=== PATIENT | female | born 1930 | race Caucasian/White ===

== ENCOUNTER 2019-06-10 16:05 | Inpatient (IN) | payer MEDICARE ==
[~2019-06-10] VITALS: Ht 165.1 cm; Wt 72.6 kg
--- NOTE | 2019-06-10 16:38 | PHYS DOC ---
Past History Past Medical History: Anxiety, Dementia, Hypertension, Hypothyroid Additional Past Medical Histor: chronic kidney disease, spinal stenosis, Smoking: Non-smoker Adult General Chief Complaint Chief Complaint: MEDICAL CLEARANCE HPI HPI Patient is an 89-year-old female who presents to the emergency department for evaluation. She is a resident at a memory care unit, has been a resident at a memory care unit, but has had increasing falls, and increasing behavioral changes recently according to her daughter. She did fall a few days ago, and developed some bruising around her eyes, but they declined imaging at that time, or further evaluation in the hospital. She has eloped from the facility a few times in the past few days, and has had a decline in her cognitive function and thus has been referred to the [facility] for psychiatric treatment and evaluation. She denies any complaints, but does exhibit symptoms of dementia. She has a history of factor V Leiden, and cerebral emboli/clots, and is on warfarin. Review of Systems Review of Systems Unable to obtain review of systems secondary to dementia. Physical Exam Physical Exam PHYSICAL EXAM: CONSTITUTIONAL: Well developed, well nourished HEAD: normocephalic, atraumatic EENT: PERRL, EOMI. Conjunctivae normal color, sclerae non-icteric; moist mucous membranes. There is bruising in the periorbital area bilaterally, subacute appearing, without any facial bony tenderness to palpation. NECK: Supple, non-tender; no meningismus.There is full, painless range of motion of the cervical spine, without any focal bony midline tenderness to palpation. LUNGS: Lungs CTA, breathing even and unlabored. Normal air movement. HEART: Regular rate and rhythm, no murmur CHEST: No deformity; non-tender ABDOMEN: The abdomen is soft, and non-tender, no masses or bruits. EXTREM: Normal ROM; no deformity, no calf tenderness. Normal pulses palpable in all extremities. There is no pedal edema. SKIN: No rash; no diaphoresis NEURO: Alert; normal speech impaired cognition consistent with dementia; CN's grossly intact; strength grossly intact without focal deficit. BACK: No CVA TTP. Current Patient Data Lab Results Laboratory Tests Test 06/10/19 16:14 06/10/19 16:30 Urine Collection Type Unknown Urine Color Yellow Urine Clarity Hazy Urine pH 6.0 Urine Specific [place] 1.010 Urine Protein Neg Urine Glucose (UA) Neg mg/dL Urine Ketones (Stick) Neg mg/dL Urine Blood Trace Urine Nitrite Neg Urine Bilirubin Neg Urine Urobilinogen Dipstick 0.2 mg/dL Urine Leukocyte Esterase Trace Urine RBC Occ /HPF Urine WBC 11-20 /HPF Urine Squamous Epithelial Cells Few /LPF Urine Bacteria Few /HPF White Blood Count 9.0 x10^3/uL Red Blood Count 5.03 x10^6/uL Hemoglobin 13.8 g/dL Hematocrit 43.3 % Mean Corpuscular Volume 86 fL Mean Corpuscular Hemoglobin 28 pg Mean Corpuscular Hemoglobin Concent 32 g/dL Red Cell Distribution Width 14.7 % Platelet Count 213 x10^3/uL Neutrophils (%) (Auto) 55 % Lymphocytes (%) (Auto) 31 % Monocytes (%) (Auto) 7 % Eosinophils (%) (Auto) 7 % Basophils (%) (Auto) 1 % Neutrophils # (Auto) 4.9 x10^3uL Lymphocytes # (Auto) 2.7 x10^3/uL Monocytes # (Auto) 0.7 x10^3/uL Eosinophils # (Auto) 0.6 x10^3/uL Basophils # (Auto) 0.1 x10^3/uL Prothrombin Time 30.4 SEC Prothromb Time International Ratio 2.9 Sodium Level 141 mmol/L Potassium Level 4.2 mmol/L Chloride Level 106 mmol/L Carbon Dioxide Level 24 mmol/L Anion Gap 11 Blood Urea Nitrogen 27 mg/dL Creatinine 1.9 mg/dL Estimated GFR (Cockcroft-Gault) 24.9 BUN/Creatinine Ratio 14 Glucose Level 89 mg/dL Calcium Level 9.9 mg/dL Magnesium Level 2.4 mg/dL Total Bilirubin 0.6 mg/dL Aspartate Amino Transf (AST/SGOT) 42 U/L Alanine Aminotransferase (ALT/SGPT) 23 U/L Alkaline Phosphatase 72 U/L Total Protein 8.3 g/dL Albumin 3.9 g/dL Albumin/Globulin Ratio 0.9 EKG EKG Normal sinus rhythm at a rate of 63 bpm, left axis deviation, normal intervals. Nonspecific ST/T changes.[] Radiology/Procedures Radiology/Procedures PROCEDURE: CT HEAD WO CONTRAST CT HEAD WO CONTRAST Clinical indications: Altered mental status. Fall. On warfarin. COMPARISON: None available. Technique: Noncontrast axial cross sectional scanning of the head was performed. PQRS compliance Statement One or more of the following individualized dose reduction techniques were utilized for this study: 1. Automated exposure control 2. Adjustment of the mA and/or kV according to patient size 3. Use of iterative reconstruction technique Findings: No acute intracranial hemorrhage or midline shift or mass-effect or extra-axial fluid collection is seen. There is encephalomalacia due to an old infarct of the medial aspect of the left cerebellum. There is moderate bilateral periventricular white matter hypodensity present. Ventriculomegaly is seen. Generalized cerebral atrophy is evident. No skull fracture or pneumocephalus is seen. No opacification of the mastoid sinuses or the middle ear cavities is seen. There is opacification of the anterior left ethmoid sinus. The maxillary sinuses are not completely seen in this study. IMPRESSION: No acute intracranial hemorrhage is seen. Ventriculomegaly which may be secondary to generalized cerebral atrophy or normal pressure hydrocephalus. Moderate bilateral periventricular white matter hypodensity which may be due to chronic small vessel ischemic disease or could be due to transependymal flow of CSF related to normal pressure hydrocephalus. 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 Anterior left ethmoid sinusitis.[] Course & Med Decision Making Course & Med Decision Making Pertinent Labs and Imaging studies reviewed. (See chart for details) [] Dragon Disclaimer Dragon Disclaimer This electronic medical record was generated, in whole or in part, using a voice recognition dictation system. Departure Departure: Impression: Primary Impression: Dementia with behavioral disturbance Disposition: ADMITTED INPATIENT (SB) Condition: STABLE COREY KIM MD Jun 10, 2019 16:38
[2019-06-10 16:54] LABS: BASO # 0.1 x10^3/uL (0.0-0.2); BASO % 1 % (0-3); EOS # 0.6 x10^3/uL (0.0-0.7); EOS % 7 % (0-3); HEMATOCRIT 43.3 % (36.0-47.0); HEMOGLOBIN 13.8 g/dL (12.0-15.5); LYMPH # 2.7 x10^3/uL (1.0-4.8); LYMPH % 31 % (24-48); MEAN CORPUSCULAR HEMOGLOBIN 28 pg (25-35); MEAN CORPUSCULAR HGB CONC 32 g/dL (31-37); MEAN CORPUSCULAR VOLUME 86 fL (79-100); MONO # 0.7 x10^3/uL (0.0-1.1); MONO % 7 % (0-9); NEUT # 4.9 x10^3uL (1.8-7.7); NEUT % 55 % (31-73); PLATELET COUNT 213 x10^3/uL (140-400); RED BLOOD COUNT 5.03 x10^6/uL (3.50-5.40); RED CELL DISTRIBUTION WIDTH 14.7 % (11.5-14.5)
--- NOTE | 2019-06-10 17:00 | RAD ---
CT HEAD WO CONTRAST Clinical indications: Altered mental status. Fall. On warfarin. COMPARISON: None available. Technique: Noncontrast axial cross sectional scanning of the head was performed. PQRS compliance Statement One or more of the following individualized dose reduction techniques were utilized for this study: 1. Automated exposure control 2. Adjustment of the mA and/or kV according to patient size 3. Use of iterative reconstruction technique Findings: No acute intracranial hemorrhage or midline shift or mass-effect or extra-axial fluid collection is seen. There is encephalomalacia due to an old infarct of the medial aspect of the left cerebellum. There is moderate bilateral periventricular white matter hypodensity present. Ventriculomegaly is seen. Generalized cerebral atrophy is evident. No skull fracture or pneumocephalus is seen. No opacification of the mastoid sinuses or the middle ear cavities is seen. There is opacification of the anterior left ethmoid sinus. The maxillary sinuses are not completely seen in this study. IMPRESSION: No acute intracranial hemorrhage is seen. Ventriculomegaly which may be secondary to generalized cerebral atrophy or normal pressure hydrocephalus. Moderate bilateral periventricular white matter hypodensity which may be due to chronic small vessel ischemic disease or could be due to transependymal flow of CSF related to normal pressure hydrocephalus. 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 Anterior left ethmoid sinusitis. Electronically signed by: Robert Jo MD (06/10/2019 4:57 PM) [email or web address]
[2019-06-10 17:04] LABS: ALBUMIN 3.9 g/dL (3.4-5.0); ALBUMIN/GLOBULIN RATIO 0.9 (1.0-1.7); CALCIUM 9.9 mg/dL (8.5-10.1); CREATININE 1.9 mg/dL (0.6-1.0); GFR 24.9; MAGNESIUM 2.4 mg/dL (1.8-2.4); POTASSIUM 4.2 mmol/L (3.5-5.1); TOTAL BILIRUBIN 0.6 mg/dL (0.2-1.0); TOTAL PROTEIN 8.3 g/dL (6.4-8.2)
[2019-06-10 17:07] LABS: BILIRUBIN,URINE NEG (NEG); CLARITY,URINE HAZY; COLOR,URINE YELLOW; GLUCOSE,URINE NEG (NEG); NITRITE,URINE NEG (NEG); RBC,URINE OCC /HPF (0-2); UROBILINOGEN,URINE 0.2 mg/dL (0.2 mg/dL)
[2019-06-10 17:08] LABS: BACTERIA,URINE FEW /HPF (0-FEW); SQUAMOUS EPITHELIAL CELL,UR FEW /LPF
[2019-06-10] MEDS ORDERED: SMZ/TMP 800/160MG TABLET. PO ONE (17:15)
[2019-06-10] MEDS ORDERED: cloNIDine HCL 0.1 MG TABLET PO ONE (17:15)
[2019-06-10] MEDS ORDERED: SERT25TA PO (18:20)
[2019-06-10] MEDS ORDERED: WARF2.5T83 PO (18:20)
[2019-06-10] MEDS ORDERED: BISA10EN RC (18:20)
[2019-06-10] MEDS ORDERED: ACET650S11 RC (18:20)
[2019-06-10] MEDS ORDERED: OLAN2.5T3 PO (18:20)
[2019-06-10] MEDS ORDERED: MAGN400O7 PO (18:20)
[2019-06-10] MEDS ORDERED: LEVO25TA55 PO (18:20)
[2019-06-10] MEDS ORDERED: MAG355OR11 PO (18:20)
[2019-06-10] MEDS ORDERED: GUAI600T6 PO (18:20)
[2019-06-10] MEDS ORDERED: LOPE2TAB27 PO (18:20)
[2019-06-10] MEDS ORDERED: ACET325T21 PO (18:20)
[2019-06-10] MEDS ORDERED: CHOL200027 PO (18:20)
[2019-06-10] MEDS ORDERED: GABA100C81 PO (18:20)
--- NOTE | 2019-06-10 18:20 | EKG ---
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
[2019-06-10 18:58] VITALS: BP 105/58
[2019-06-10] MEDS ORDERED: ACETAMINOPHEN 650 MG SUPP.RECT. RC PRN (20:15)
[2019-06-10] MEDS ORDERED: MAGNESIUM HYDROXIDE 2,400 MG/30 ML ORAL.SUSP. PO PRN (20:15)
[2019-06-10] MEDS ORDERED: BISACODYL 10 MG/30 ML ENEMA RC PRN (20:15)
[2019-06-10] MEDS ORDERED: ACETAMINOPHEN 325 MG TABLET PO PRN (20:15)
[2019-06-10] MEDS ORDERED: METHYL SALICYLATE/MENTHOL TOPICAL OINTMENT 57GM TUBE. TP PRN (20:15)
[2019-06-10] MEDS ORDERED: MAG HYDROX/AL HYDROX/SIMETH 30 ML ORAL.SUSP PO PRN (20:45)
[2019-06-10] MEDS ORDERED: LOPERAMIDE 2 MG CAPSULE PO PRN (20:45)
[2019-06-10] MEDS: SERTRALINE 25 MG TABLET. PO SCH (20:52)
[2019-06-11] MEDS: LEVOTHYROXINE 25 MCG TABLET. PO SCH (04:52)
[2019-06-11 06:06] VITALS: BP 122/65
[2019-06-11] MEDS: OLANZapine 5 MG TABLET PO SCH ×2 (10:43→14:34)
--- NOTE | 2019-06-11 12:53 | CONS ---
DATE OF CONSULTATION: 06/10/2019 REASON FOR CONSULTATION: Medical management. HISTORY OF PRESENT ILLNESS: The patient is an 89-year-old female patient, a resident at [facility], who was admitted on account of severe paranoia, exit seeking, eloped from facility x 2, chasing staff with broken glass shreds from picture frames, fairly recently on June 26 bumped her forehead and small abrasions, all this in background of dementia with behavioral disorder and anxiety. Medically, she has multiple medical problems including cerebrovascular accident, spinal stenosis, hypertension, hypothyroidism, vitamin D deficiency, chronic kidney disease. She also has left-sided sciatica. PAST SURGICAL HISTORY: Significant for tonsillectomy. ALLERGIES: She is allergic to PENICILLIN, AMOXICILLIN and CLAVULANIC ACID. MEDICATIONS: She is currently on following medications: She is on Coumadin 2.5 mg once a day, acetaminophen 325 mg once a day, Tylenol 650 mg every 4 hours, gabapentin 200 mg at bedtime, sertraline 75 mg at bedtime, olanzapine 2.5 mg, she takes 5 mg after every afternoon. She is on Mucinex extended release 600 mg twice a day, Maalox advanced suspension 15 mL after meals and bedtime, loperamide 2 mg every 4 hours as needed, bisacodyl 10 mg in 30 mL enema rectally daily p.r.n. for constipation, milk of magnesia 30 mL p.o. daily p.r.n. for constipation. She is on levothyroxine 25 mcg once a day, vitamin D 2000 International Units once a day. FAMILY HISTORY: Noncontributory. SOCIAL HISTORY: She is , has 2 sons and 1 daughter. 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 She apparently does not smoke, drink alcohol or use recreational drugs. REVIEW OF SYSTEMS: As per history of present illness. PHYSICAL EXAMINATION GENERAL: When I examined her, she looked well and was clearly in no apparent respiratory distress. There was no pallor, jaundice or cyanosis. No lymphadenopathy. No thyromegaly. No jugular venous distention. No lower limb edema. VITAL SIGNS: Her heart rate was 73, blood pressure was 105/58, temperature was 98.7, respiratory rate was 18 and oxygen saturation was 95% on room air. HEAD, EYES, EARS, NOSE AND THROAT: Showed normocephalic with multiple bruises. She has bilateral raccoon eyes. She has also bruises on her scalp area. NECK: Supple. HEART: Showed normal first and second heart sounds. No gallop or murmur. CHEST: Clear to auscultation. No crepitation or rhonchi. ABDOMEN: Distended, soft, nontender. NEUROLOGIC: She was demented, but without any obvious lateralizing sign. All her cranial nerves seemed to be grossly intact. She ambulates with a walker, although she is very unsteady and apparently has tendency to veer towards the left side. LABORATORY DATA: Showed white cell count of 9000, hemoglobin 13.8, hematocrit 43, MCV 86 and platelet count 213,000. Her chemistry showed serum sodium 141, potassium 4.2, chloride 106, bicarbonate 24, anion gap of 11, BUN 27, creatinine 1.9. Her blood glucose was 89, calcium was 9.9, magnesium 2.4. Total bilirubin, AST, ALT, alkaline phosphatase were normal. Total protein was 8.3, albumin was 3.9. Her prothrombin time was 13.4, INR of 2.9. Urinalysis was essentially unremarkable. The urine was yellow, hazy with pH of 6, specific gravity of 1.010. The urine was negative for protein, glucose, ketones. There was trace amount of blood, negative for nitrite. There was trace of leukocyte esterase, occasional rbc's, 11-20 wbc's and very few bacteria. CT scan of the head showed no acute intracranial hemorrhage or midline shift or mass effect or extraaxial fluid collection is seen. There is encephalomalacia due to an old infarct of the medial aspect of the left cerebellum. There is moderate bilateral periventricular white matter modestly, hypodensity present, ventriculomegaly seen, generalized cerebral atrophy is evident. No skull fracture or pneumocephalus is seen. No opacification of the mastoid sinuses or middle ear cavities is seen. There is opacification of the anterior left ethmoid sinuses. The maxillary sinuses are not completely seen in this study. IMPRESSION: In summary, this is an 89-year-old female patient, a resident at [facility] where she was admitted for rehabilitation following recent cerebrovascular accident and was admitted to this unit on account of severe paranoia, exit seeking, eloped from the facility x 2, chasing staff with broken glass shreds from picture frames, fell recently on June 06, bumped her forehead and small abrasions, all this in a background of dementia with behavioral disorder. Medically, she has multiple medical problems. She clearly has very unsteady gait and tendency to veer towards the left side, likely because of cerebral infarct. She has also labile blood pressure with heart rate where blood pressure goes up to 112/85. Her lab work is generally stable, consistent with her chronic kidney disease, so in all she seems to be medically stable. I would continue all this current plan of management and monitor her lab work and make any necessary adjustments. Thank you, Dr. Sims for allowing me to participate in the care of this patient. MAIK LEE MD DR: TU/nts JOB#: [id number] / [id number]
[2019-06-11 14:58] LABS: THYROID STIM HORMONE (TSH) 2.661 uIU/mL (0.358-3.740)
[2019-06-11 16:00] VITALS: BP 161/116
[2019-06-11] MEDS: WARFARIN 2 MG TABLET. PO SCH (16:00)
[2019-06-11] MEDS ORDERED: WARFARIN 2.5 MG TABLET. PO SCH (16:00)
[2019-06-11] MEDS: CHOLECALCIFEROL (VITAMIN D3) 1,000 UNIT TABLET PO SCH (17:16)
[2019-06-11] MEDS: GABAPENTIN 100 MG CAPSULE. PO SCH (17:16)
[2019-06-11] MEDS: SERTRALINE 25 MG TABLET. PO SCH (20:19)
[2019-06-11 20:24] VITALS: BP 129/76
--- NOTE | 2019-06-12 00:27 | PSYEV ---
DATE OF SERVICE: 06/11/2019 REASON FOR ADMISSION: This 89-year-old single female was admitted to inpatient [facility] with the increasing behavior problems. The patient apparently tried to elope from the facility twice, chasing staff with a broken glass after she broke a picture frame, also fell on 06/13 with a bump on her forehead and abrasion and admits that she has problems with her balance. The patient also has been confused. 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 The patient had considerable difficulty providing information with regard to reason for admission. The patient was diagnosed with dementia with behavior disorder and anxiety. The patient is also having multiple medical issues. The patient since admission has been anxious, restless, confused, not knowing where she is. The patient also having problems with concentration, attention span and significant memory problems. PAST MEDICAL HISTORY: The patient apparently has multiple physical problems including hypertension, hypothyroidism, vitamin D deficiency, chronic kidney disease, left-sided sciatica and spinal stenosis. ALLERGIES: The patient is allergic to PENICILLIN, AMOXICILLIN and also CLAVULANIC ACID. MEDICATIONS: The patient's current medications include Coumadin 2.5 mg daily, Tylenol 325 mg daily, gabapentin 200 mg at bedtime, Zoloft 75 mg at bedtime, olanzapine 2.5 mg daily and 5 mg at noon. The patient is also on levothyroxine 25 mcg once daily for hypothyroidism. PSYCHOSOCIAL HISTORY: The patient is and has 2 sons and a daughter. 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 The patient denies of any problems smoking. Denies of any problems with alcohol. The patient's father , apparently had cardiovascular disease and hypertension. Mother also when he was 8 years old, had breast cancer. One of her brother at age 26 with a motor vehicular accident and another brother from emphysema at age 78. The patient admits to drinking socially, never had any problems with alcohol. MENTAL STATUS EXAMINATION: The patient appeared to be of her stated age, patient apparently has bruises over her face below eyes. The patient has no swelling. The patient has marked tremors of both hands. The patient has also unsteady gait and she is a fall risk. The patient is able to make eye contact. She is somewhat anxious, agitation, and also guarded. She was disoriented to surroundings. She thought she was in a gnosticist. The patient's speech was clear, monotone, decreased rate and rhythm. Her affect and mood showed she is anxious, worried, confused and also paranoid at times, but no evidence of any overt psychotic symptoms. The patient tends to pace a lot. The patient is also having difficulty with concentration and thinking, not able to follow directions. The patient lacks insight to her problems. The patient is disoriented to time, place, and person. The patient did not know the date, month or year, but the patient is able to recall events from the past. The patient's short-term memory is impaired. Unable to do serial 7's, able to recall 1 object out of 4 in 5 minutes. The patient's judgment is impaired. Insight limited. The patient appears to be functioning on an average level of intelligence. STRENGTHS: The patient is apparently fairly in good health for her age. Supportive family. WEAKNESSES: The patient is confused, significant cognitive deficits. The patient is also not able to follow directions and she has high risk for falls. ADMITTING DIAGNOSES: AXIS I: 1. 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 2. Generalized anxiety disorder. 3. Impulse control disorder, unspecified, rule out underlying psychosis. AXIS II: None. AXIS III: Status post cerebrovascular accident, chronic kidney disease, osteoarthritis, and hypothyroidism. The patient will be admitted to the inpatient unit. The patient will be seen by Dr. Downey for physical exam. The patient will undergo routine evaluations including lab. The patient will be seen by the psychiatrist on a daily basis. The patient will be encouraged to attend all the activities including individual therapy, group therapy, activity therapy. PLAN: The patient will continue the current medications. LENGTH OF STAY: 7-10 days. ARSALAN VALENCIA MD DR: BRADEN/luana JOB#: [id number] / [id number]
[2019-06-12 01:07] LABS: HEMOGLOBIN A1C 5.4 % (4.8-5.6)
[2019-06-12] MEDS: LEVOTHYROXINE 25 MCG TABLET. PO SCH (05:23)
[2019-06-12 06:11] VITALS: BP 159/49
[2019-06-12 06:36] VITALS: BP 101/72
[2019-06-12] MEDS: WARFARIN 2 MG TABLET. PO SCH (14:57)
--- NOTE | 2019-06-12 15:17 | TX PLAN ---
Interdisciplinary Tx Plan Admission Information Jun 10, 2019 at 18:20 Legal Status (on Admission): Voluntary DPOA/Guardian Name: Rachelle Restrepo Contact Other Contact Name: [facility] ([facility]) Other Contact Verified Code Status: DNR Allergies: Coded Allergies: Penicillins (Verified Allergy, Unknown, 06/10/19) amoxicillin (Verified Allergy, Unknown, 06/10/19) clavulanic acid (Verified Allergy, Unknown, 06/10/19) Diagnoses Primary Diagnosis: Major Neurocognitive D/O with BD Reasons for Admission: Agitated, Suspicious/paranoid, Confusion/Disoriented, Poor impulse control Problem in Patient's Words: Natural progression of her diagnosis Additional Admission Comments: According to the intake, pt has severe paranoia, exit seeking, eloped from the facility x2, chasing staff with broken glass from picture frames, in her room with 1:1 and needing redirection. Problems Active Problems: Medication compliance Restlessness Unsteady gait Paranoia Decrease cognition Inactive Problems: N/A Pt Strengths/Limitations Ability for Mcpherson: Poor Cognitive Functioning/Ability: Poor Communication Skills/Ability: Fair Financial Resources: Fair Insight/Judgement: Poor Intellectual Ability: Poor Physical Health: Fair Social Skills: Fair Stability in Family: Good Stability in School/Work: Poor Verbal Skills: Fair Discharge Criteria Discharge Criteria: No need for close observ., Adequate arrangements @DC, Improved behavior, Improved mood/thought Preliminary Discharge Plan Preliminary DC Plan: Current Living Arrange. Other Arrangements: Pt to return to her plalcement at [facility] Special Precautions Fall Risk: Moderate Other Precautions (specify): Pt does have unsteady gait and using a RW Initial D/C Plan After assessment and stabilization, the goal will be for pt to return back to her placement in [place], [place]. Identified Discharge Needs: Pt will plan to follow-up with pt facility to plan pt return. Currently Utilized Resources Currently Utilized Resources/P: Pt does have a primary care physician Referrals Community Resources: May need referral sources to mental health/psychiatry services. Identified Problems/Hx/Goals Objectives/Short-Term Goals Short Term Goals: Improved Social Skills, Medication Stabilization, Promote Coping Skill Short Term Goals in Patient's: Decrease paranoia Interventions/Frequency Staff Interventions/Frequency&: Psychiatrist to meet with pt at least 3x per week. chemical worker to meet with pt at least 2x per week. Nursing to complete 15 minute checks daily. Engage and encourage participation in group activities. 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 Education: Pt graduated with her Bachelors in Nursing. "Back then you didn't have a BSN option". Community Follow-up Will have follow-up with PCP. Community Provider/Family Inpu: Anything that will work with Adele and continuing care for pt would be appreciated. 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 They are aware of goals that will be set and understand medications will be adjusted. ALEXX HOPPER Jun 12, 2019 15:17
[2019-06-12 16:54] VITALS: BP 143/69
[2019-06-12] MEDS: CHOLECALCIFEROL (VITAMIN D3) 1,000 UNIT TABLET PO SCH (18:00)
[2019-06-12] MEDS: GABAPENTIN 100 MG CAPSULE. PO SCH (18:09)
[2019-06-12] MEDS: SERTRALINE 25 MG TABLET. PO SCH (19:57)
[2019-06-12 20:45] VITALS: BP 187/76
[2019-06-12] MEDS ORDERED: OLANZapine 7.5 MG TABLET PO SCH (21:00)
--- NOTE | 2019-06-12 23:52 | PN ---
DATE: 06/12/2019 SUBJECTIVE: The patient was seen today, met with the staff, chart reviewed. According to staff, the patient is still disorganized, confused, agitated easily, also delusional, tend to be aggressive at times, not able to follow directions and also threatening to cut staff's hair off. OBSERVATION: VITAL SIGNS: Temperature 98, blood pressure 159/49, pulse 90, respiration 18, O2 sat 94%. GENERAL: Slept about 7 hours last night. The patient's appetite improved. MEDICATIONS: The patient's current medications include gabapentin 200 mg in the evening, olanzapine 7.5 mg at night and also olanzapine 2.5 mg q. 4 hours p.r.n., Zoloft 75 mg at night. The patient is not having any side effects. LABORATORY DATA: The patient's lab reviewed. The patient's BUN is 27, creatinine 1.9. ASSESSMENT: 1. Neurocognitive disorder, most likely vascular with behavior problems. 2. Generalized anxiety disorder. 3. Impulse control disorder, unspecified. PLAN: To continue with current treatment plan. The patient is encouraged to attend all the activities. So far, the patient is compliant with the treatment. LENGTH OF STAY: 7-10 days. ARSALAN VALENCIA MD DR: BRADEN/luana JOB#: [id number] / [id number]
[2019-06-13 00:07] LABS: THYROXINE 8.1 ug/dL (4.5-12.0)
[2019-06-13] MEDS: LEVOTHYROXINE 25 MCG TABLET. PO SCH (05:56)
[2019-06-13 05:57] VITALS: BP 175/71
[2019-06-13 15:58] VITALS: BP 130/60
[2019-06-13] MEDS ORDERED: WARFARIN 3 MG TABLET. PO ONE (16:00)
[2019-06-13] MEDS: CHOLECALCIFEROL (VITAMIN D3) 1,000 UNIT TABLET PO SCH (17:23)
[2019-06-13] MEDS: GABAPENTIN 100 MG CAPSULE. PO SCH (17:24)
[2019-06-13] MEDS: OLANZapine 10 MG TABLET PO SCH (19:58)
[2019-06-13] MEDS: DIVALPROEX 125 MG CAP.SPRINK PO SCH (19:58)
[2019-06-13] MEDS: SERTRALINE 50 MG TABLET. PO SCH (19:58)
--- NOTE | 2019-06-14 00:03 | PN ---
DATE: 06/13/2019 SUBJECTIVE: The patient was seen today, met with the staff, and reviewed her progress and medications. Staff reports increasing behavior problems. She is confused, agitated, difficult to redirect and also exit-seeking behaviors. Staff reports that the patient is disorganized, also fell and she missed the chair in the dayroom, but no injuries. The patient has episodes of increased confusion and agitation and constantly focusing on issues that are not relevant at this point here. 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 OBSERVATION: VITAL SIGNS: Temperature 97.2, blood pressure 175/71, pulse 68, respirations 20, O2 sat 95%. GENERAL: Slept about 7 hours last night. The patient's appetite is fair. MEDICATIONS: The patient's current medications include gabapentin 200 mg in the evening, olanzapine 7.5 mg at night, Zoloft 75 mg at night and also olanzapine 2.5 mg q.4 hours p.r.n. LABORATORY DATA: The patient's lab reviewed. The patient is not having any side effects to medications. 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 Generalized anxiety disorder. Impulse control disorder, unspecified. PLAN: To continue with the treatment. The patient will be encouraged to attend all the activities. The patient's medications reviewed. The patient's gabapentin to be increased to 10 mg at night. The patient's Zoloft to be decreased to 50 mg at night and she was started on Depakote Sprinkles 125 mg b.i.d. p.o. ASSESSMENT: 1. 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 2. Generalized anxiety disorder. 3. Impulse control disorder, unspecified. PLAN: Continue with the treatment. LENGTH OF STAY: 7-10 days. ARSALAN VALENCIA MD DR: BRADEN/luana JOB#: [id number] / [id number]
[2019-06-14] MEDS: LEVOTHYROXINE 25 MCG TABLET. PO SCH (05:15)
[2019-06-14 06:03] VITALS: BP 139/68
[2019-06-14] MEDS: DIVALPROEX 125 MG CAP.SPRINK PO SCH ×3 (08:16→19:50)
[2019-06-14 15:32] VITALS: BP 98/64
[2019-06-14] MEDS ORDERED: WARFARIN 3 MG TABLET. PO ONE (16:00)
[2019-06-14] MEDS: CHOLECALCIFEROL (VITAMIN D3) 1,000 UNIT TABLET PO SCH (17:31)
[2019-06-14] MEDS: GABAPENTIN 100 MG CAPSULE. PO SCH (17:31)
[2019-06-14] MEDS: SERTRALINE 50 MG TABLET. PO SCH (19:50)
[2019-06-14] MEDS: OLANZapine 10 MG TABLET PO SCH (19:51)
--- NOTE | 2019-06-15 01:13 | PN ---
DATE: 06/14/2019 SUBJECTIVE: The patient was seen today, met with the staff, chart reviewed. The patient continues to show fluctuating symptoms, periods of confusion, agitation and also threatening to leave. The patient also gets paranoia. The patient is also showing significant mood swings and also significant short-term memory deficits. OBSERVATION: VITAL SIGNS: Temperature 97.6, blood pressure 139/68, pulse 72, respiration 18, O2 sat 97%. GENERAL: Slept about 7 hours last night. The patient's appetite is fair. The patient is not having any physical complaints. LABORATORY DATA: The patient's lab reviewed. MEDICATIONS: The patient's olanzapine was increased to 10 mg at night. The patient is also on Depakote Sprinkles 125 mg t.i.d. The patient is not having any side effects to medications. ASSESSMENT: 1. 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 2. Generalized anxiety disorder. 3. Impulse control disorder, unspecified. PLAN: To continue with the treatment. LENGTH OF STAY: 7-10 days. ARSALAN VALENCIA MD DR: BRADEN/luana JOB#: [id number] / [id number]
[2019-06-15] MEDS: LEVOTHYROXINE 25 MCG TABLET. PO SCH (05:40)
[2019-06-15 06:14] VITALS: BP 158/66
[2019-06-15] MEDS: DIVALPROEX 125 MG CAP.SPRINK PO SCH ×3 (08:57→19:37)
[2019-06-15 15:38] VITALS: BP 162/80
[2019-06-15] MEDS ORDERED: WARFARIN 3 MG TABLET. PO ONE (16:00)
[2019-06-15] MEDS: GABAPENTIN 100 MG CAPSULE. PO SCH (16:27)
[2019-06-15] MEDS: CHOLECALCIFEROL (VITAMIN D3) 1,000 UNIT TABLET PO SCH (16:28)
[2019-06-15] MEDS: SERTRALINE 50 MG TABLET. PO SCH (19:37)
[2019-06-15] MEDS: OLANZapine 10 MG TABLET PO SCH (19:37)
--- NOTE | 2019-06-16 01:04 | PN ---
DATE: 06/15/2019 SUBJECTIVE: The patient was seen today, met with the staff, chart reviewed. The patient's behavior tend to fluctuate, episodes of confusion, agitation, pacing, exit seeking behavior and also she is an elopement risk. Overall, her behavior has improved slightly. The patient continued to exhibit delusional behaviors, disorganized thinking, but sociable, interact with the staff and residents. OBSERVATION: VITAL SIGNS: Temperature 98.8, blood pressure 158/66, pulse 77, respirations 18, O2 sat 94%. The patient is averaging between 5 and 6 hours of sleep at night. LABORATORY DATA: The patient's lab reviewed. MEDICATIONS: The patient's current medications include olanzapine 10 mg at night, Depakote Sprinkles 125 mg t.i.d. and it is increased now to 125 mg b.i.d. and 500 mg at night. The patient is also on Zoloft 50 mg at night, that will be decreased to 25 mg daily. The patient is not having any side effects. The patient has not had any falls since admission. ASSESSMENT: 1. 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 2. Generalized anxiety disorder. 3. Impulse control disorder, unspecified. PLAN: To continue with the treatment. LENGTH OF STAY: 7-10 days. ARSALAN VALENCIA MD DR: BRADEN/luana JOB#: [id number] / [id number]
[2019-06-16] MEDS: LEVOTHYROXINE 25 MCG TABLET. PO SCH (04:55)
[2019-06-16 05:52] VITALS: BP 111/70
[2019-06-16 07:11] LABS: BASO # 0.1 x10^3/uL (0.0-0.2); BASO % 1 % (0-3); EOS # 0.5 x10^3/uL (0.0-0.7); EOS % 5 % (0-3); HEMATOCRIT 42.5 % (36.0-47.0); HEMOGLOBIN 13.6 g/dL (12.0-15.5); LYMPH # 3.6 x10^3/uL (1.0-4.8); LYMPH % 33 % (24-48); MEAN CORPUSCULAR HEMOGLOBIN 28 pg (25-35); MEAN CORPUSCULAR HGB CONC 32 g/dL (31-37); MEAN CORPUSCULAR VOLUME 86 fL (79-100); MONO % 9 % (0-9); NEUT # 5.8 x10^3uL (1.8-7.7); NEUT % 53 % (31-73); PLATELET COUNT 231 x10^3/uL (140-400); RED BLOOD COUNT 4.94 x10^6/uL (3.50-5.40); RED CELL DISTRIBUTION WIDTH 14.8 % (11.5-14.5)
[2019-06-16 07:28] LABS: ALBUMIN 3.4 g/dL (3.4-5.0); ALBUMIN/GLOBULIN RATIO 0.7 (1.0-1.7); ALK PHOS 66 U/L (46-116); ALT (SGPT) 29 U/L (14-59); ANION GAP 8 (6-14); AST (SGOT) 35 U/L (15-37); BLOOD UREA NITROGEN 38 mg/dL (7-20); BUN/CREATININE RATIO 19 (6-20); CALCIUM 9.3 mg/dL (8.5-10.1); CARBON DIOXIDE 25 mmol/L (21-32); CHLORIDE 108 mmol/L (98-107); GFR 23.5; GLUCOSE 93 mg/dL (70-99); POTASSIUM 5.1 mmol/L (3.5-5.1); SODIUM 141 mmol/L (136-145); TOTAL BILIRUBIN 0.6 mg/dL (0.2-1.0); TOTAL PROTEIN 8.1 g/dL (6.4-8.2)
[2019-06-16 08:04] LABS: VAL ACID 30 mcg/mL (50-100)
[2019-06-16] MEDS: DIVALPROEX 125 MG CAP.SPRINK PO SCH ×3 (09:06→20:00)
[2019-06-16 09:36] LABS: % ATYL 16 % (0-0); % EOS 6 % (0-5); % LYMPHS 17 % (24-48); % MONOS 14 % (0-10); % SEGS 47 % (35-66)
[2019-06-16 09:37] LABS: PLT ESTIMATE ADEQUATE (ADEQUATE)
[2019-06-16] MEDS ORDERED: WARFARIN 3 MG TABLET. PO ONE (16:00)
[2019-06-16 16:12] VITALS: BP 109/61
[2019-06-16] MEDS: GABAPENTIN 100 MG CAPSULE. PO SCH (18:35)
[2019-06-16] MEDS: CHOLECALCIFEROL (VITAMIN D3) 1,000 UNIT TABLET PO SCH (18:36)
[2019-06-16] MEDS: OLANZapine 10 MG TABLET PO SCH (19:59)
[2019-06-16] MEDS: SERTRALINE 50 MG TABLET. PO SCH (20:00)
[2019-06-17] MEDS: LEVOTHYROXINE 25 MCG TABLET. PO SCH (05:12)
[2019-06-17 05:30] VITALS: BP 152/68
[2019-06-17] MEDS: DIVALPROEX 125 MG CAP.SPRINK PO SCH ×3 (08:11→20:02)
--- NOTE | 2019-06-17 10:00 | PN ---
DATE: 06/16/2019 SUBJECTIVE: The patient was seen today, met with the staff, chart reviewed. Staff continues to report increasing behavior problems, agitation, disorganized with thinking and very confused, and also exhibiting poor impulse control and low frustration tolerance. The patient apparently has calmed down. She is no longer wandering, not exhibiting exit-seeking behaviors. OBSERVATION: VITAL SIGNS: Temperature 98.9, blood pressure 111/70, pulse 76, respirations 20, O2 sat 94. GENERAL: Slept about 8 hours last night. The patient's appetite improved. NEUROLOGIC: The patient is not exhibiting any major mood swings; mostly withdrawn, but interacts very well on 1:1. The patient is lacking insight. The patient has significant cognitive deficits. She is disoriented to time, place and person. LABORATORY DATA: The patient's lab reviewed. CURRENT MEDICATIONS: Include olanzapine 10 mg at night, Depakote 125 mg t.i.d. that was increased to 125 mg b.i.d. and 500 mg at night. The patient is also on Zoloft 50 mg at night, and the plan is to eventually discontinue the Zoloft. The patient is not having any side effects. The patient has not had any falls since admission. ASSESSMENT: 1. 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 2. Generalized anxiety disorder. 3. Impulse control disorder, unspecified. PLAN: To continue with the treatment. LENGTH OF STAY: 7 to 10 days. ARSALAN VALENCIA MD DR: BRADEN/luana JOB#: [id number] / [id number]
[2019-06-17 15:31] VITALS: BP 157/75
[2019-06-17] MEDS ORDERED: WARFARIN 2.5 MG TABLET. PO ONE (16:00)
[2019-06-17] MEDS: GABAPENTIN 100 MG CAPSULE. PO SCH (17:10)
[2019-06-17] MEDS: CHOLECALCIFEROL (VITAMIN D3) 1,000 UNIT TABLET PO SCH (17:10)
[2019-06-17] MEDS: OLANZapine 10 MG TABLET PO SCH (20:02)
[2019-06-17] MEDS: SERTRALINE 50 MG TABLET. PO SCH (20:02)
--- NOTE | 2019-06-18 00:45 | PN ---
DATE: 06/17/2019 SUBJECTIVE: The patient was seen today, met with the staff, chart reviewed. The patient increasingly unsteady with her gait, tremulousness, also increased confusion. The patient exhibiting fairly advanced dementia. The patient is having difficulty orienting herself. She mixed up with the date and time. The patient mostly was conversation things from the past. Staff reports no falls, but patient is complaining of discomfort on her left knee. OBSERVATION: VITAL SIGNS: Temperature 97.6, blood pressure 152/68, pulse 80, respiration 18, O2 sat 92%. GENERAL: Slept about 7-1/2 hours last night. CURRENT MEDICATIONS: Include olanzapine 10 mg at night, Depakote 125 mg b.i.d. and 500 mg at night. The patient is also on Zoloft 50 mg at night and also patient's Zoloft to be discontinued eventually. The patient except for some tremulousness and unsteady gait, no other major side effects and we will monitor patient's Depakote level. LABORATORY DATA: The patient's lab reviewed. The patient's Depakote level was 30 on 06/16/2019. ASSESSMENT: 1. 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 2. Generalized anxiety disorder. 3. Impulse control disorder, unspecified. PLAN: To continue with the treatment. LENGTH OF STAY: 7-10 days. ARSALAN VALENCIA MD DR: BRADEN/luana JOB#: [id number] / [id number]
[2019-06-18 05:21] VITALS: BP 146/71
[2019-06-18] MEDS: LEVOTHYROXINE 25 MCG TABLET. PO SCH (05:44)
[2019-06-18] MEDS: DIVALPROEX 125 MG CAP.SPRINK PO SCH ×3 (08:44→19:57)
[2019-06-18 15:55] VITALS: BP 188/78
[2019-06-18] MEDS ORDERED: WARFARIN 3 MG TABLET. PO ONE (16:00)
[2019-06-18] MEDS: GABAPENTIN 100 MG CAPSULE. PO SCH (17:13)
[2019-06-18] MEDS: CHOLECALCIFEROL (VITAMIN D3) 1,000 UNIT TABLET PO SCH (17:15)
[2019-06-18] MEDS: SERTRALINE 50 MG TABLET. PO SCH (19:57)
[2019-06-18] MEDS: OLANZapine 10 MG TABLET PO SCH (19:57)
--- NOTE | 2019-06-18 21:58 | PDOC ---
Exam Note: Cem Note: Please also refer to the separate dictated note~for this date of service dictated separately.~Patient seen individually. Discussed the patient with Nursing staff reviewed the chart.~Reviewed interim history and current functioning. Reviewed vital signs,~Labs/ Radiology~and current medications noted below. Continue current treatment with the changes noted in the dictated addendum note Assessment: Vital Signs/I&O: Vital Signs Date Time Temp Pulse Resp B/P (MAP) Pulse Ox O2 Delivery O2 Flow Rate FiO2 06/18/19 15:55 97.9 89 24 188/78 (114) 97 06/18/19 05:21 Room Air I & O 06/17/19 06/17/19 06/18/19 15:00 23:00 07:00 Intake Total 720 ml 60 ml 240 ml Balance 720 ml 60 ml 240 ml Labs: Laboratory Tests Test 06/18/19 06:19 Prothrombin Time 19.8 SEC (9.4-11.4) H Prothrombin Time INR 1.9 (0.9-1.1) H Current Medications: Meds: Current Medications Medications (Trade) Dose Ordered Sig/Elizabeth Route PRN Reason Start Time Stop Time Status Last Admin Dose Admin Warfarin Sodium (Coumadin) 3 mg 1X WARF ONCE PO 06/18/19 16:00 06/18/19 16:01 DC 06/18/19 17:12 I have reviewed the current psychotropics carefully including drug interactions. Risk benefit ratio favors no change other than as noted in my dictated progress note. Diagnosis: Problems: (1) Major neurocognitive disorder possibly due to vascular disease, with behavioral disturbance (2) Anxiety disorder affecting , antepartum (3) Impulse disorder, unspecified LIZA JAY MD Jun 18, 2019 21:58
[2019-06-19] MEDS: LEVOTHYROXINE 25 MCG TABLET. PO SCH (05:10)
[2019-06-19 05:19] VITALS: BP 178/67
[2019-06-19] MEDS: DIVALPROEX 125 MG CAP.SPRINK PO SCH ×3 (08:15→20:12)
[2019-06-19] MEDS ORDERED: WARFARIN 4 MG TABLET. PO ONE (16:00)
[2019-06-19 16:24] VITALS: BP 142/96
[2019-06-19] MEDS: CHOLECALCIFEROL (VITAMIN D3) 1,000 UNIT TABLET PO SCH (18:01)
[2019-06-19] MEDS: GABAPENTIN 100 MG CAPSULE. PO SCH (18:02)
[2019-06-19] MEDS: OLANZapine 10 MG TABLET PO SCH (20:12)
[2019-06-19] MEDS: SERTRALINE 50 MG TABLET. PO SCH (20:12)
--- NOTE | 2019-06-19 22:20 | PN ---
DATE: 06/18/2019 PSYCHIATRIC PROGRESS NOTE This late entry 06/18/2019 covers elements not covered in my initial note. SUBJECTIVE: I met with the patient evening of 06/18/2019. Reviewed information from Dr. Jasso, who covered for me over the past week or so. The patient had been referred to us from [facility] due to increased agitation and aggression, attempts to elope and failure of outpatient psychiatric interventions for her major neurocognitive disorder, Alzheimer, vascular with delusion, depression, behavioral disturbance. REVIEW OF SYSTEMS: Ambulation impaired with walker. No CV, , pulmonary, eye, ENT system symptoms on review. Reliability poor. 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 Oriented to herself and situation. Speech has some latency, coherent. Abstraction fair, computation impaired, language function intact, attention span short. Mood and affect withdrawn. LABORATORY DATA: Reviewed. IMPRESSION: Major neurocognitive disorder; Alzheimer; vascular with delusion; depression; behavioral disturbance; anxiety disorder, unspecified; impulse control disorder, unspecified. Rest unchanged. PLAN: Continue current psychotropics, Zoloft along with Depakote Sprinkles and Zyprexa as p.r.n. Adjust further as clinically indicated. MAN Demetria JAY MD DR: JAZMIN/luana JOB#: [id number] / [id number]
--- NOTE | 2019-06-19 23:27 | PDOC ---
Exam Note: Cem Note: Please also refer to the separate dictated note~for this date of service dictated separately.~Patient seen individually. Discussed the patient with Nursing staff reviewed the chart.~Reviewed interim history and current functioning. Reviewed vital signs,~Labs/ Radiology~and current medications noted below. Continue current treatment with the changes noted in the dictated addendum note Assessment: Vital Signs/I&O: Vital Signs Date Time Temp Pulse Resp B/P (MAP) Pulse Ox O2 Delivery O2 Flow Rate FiO2 06/19/19 16:24 97.6 80 18 142/96 (111) 93 06/19/19 05:19 Room Air I & O 06/18/19 06/18/19 06/19/19 15:00 23:00 07:00 Intake Total 720 ml 440 ml Balance 720 ml 440 ml Labs: Laboratory Tests Test 06/19/19 06:59 Prothrombin Time 19.1 SEC (9.4-11.4) H Prothrombin Time INR 1.8 (0.9-1.1) H Current Medications: Meds: Current Medications Medications (Trade) Dose Ordered Sig/Elizabeth Route PRN Reason Start Time Stop Time Status Last Admin Dose Admin Warfarin Sodium (Coumadin) 4 mg 1X WARF ONCE PO 06/19/19 16:00 06/19/19 16:01 DC 06/19/19 16:23 I have reviewed the current psychotropics carefully including drug interactions. Risk benefit ratio favors no change other than as noted in my dictated progress note. Diagnosis: Problems: (1) Impulse disorder, unspecified (2) Anxiety disorder affecting , antepartum (3) Major neurocognitive disorder possibly due to vascular disease, with behavioral disturbance LIZA JAY MD Jun 19, 2019 23:27
[2019-06-20] MEDS: LEVOTHYROXINE 25 MCG TABLET. PO SCH (06:04)
[2019-06-20 06:20] VITALS: BP 160/74
[2019-06-20] MEDS: DIVALPROEX 125 MG CAP.SPRINK PO SCH ×3 (09:10→19:59)
[2019-06-20] MEDS ORDERED: WARFARIN 4 MG TABLET. PO ONE (16:00)
[2019-06-20 16:16] VITALS: BP 123/60
[2019-06-20] MEDS: CHOLECALCIFEROL (VITAMIN D3) 1,000 UNIT TABLET PO SCH (17:16)
[2019-06-20] MEDS: GABAPENTIN 100 MG CAPSULE. PO SCH (17:17)
[2019-06-20] MEDS: OLANZapine 10 MG TABLET PO SCH (19:59)
[2019-06-20] MEDS: SERTRALINE 50 MG TABLET. PO SCH (19:59)
--- NOTE | 2019-06-20 20:44 | PDOC ---
Exam Note: Cem Note: Please also refer to the separate dictated note~for this date of service dictated separately.~Patient seen individually. Discussed the patient with Nursing staff reviewed the chart.~Reviewed interim history and current functioning. Reviewed vital signs,~Labs/ Radiology~and current medications noted below. Continue current treatment with the changes noted in the dictated addendum note Assessment: Vital Signs/I&O: Vital Signs Date Time Temp Pulse Resp B/P (MAP) Pulse Ox O2 Delivery O2 Flow Rate FiO2 06/20/19 16:16 98.1 86 20 123/60 (81) 93 06/19/19 05:19 Room Air I & O 06/19/19 06/19/19 06/20/19 15:00 23:00 07:00 Intake Total 600 ml 240 ml Balance 600 ml 240 ml Labs: Laboratory Tests Test 06/20/19 07:07 Prothrombin Time 18.3 SEC (9.4-11.4) H Prothrombin Time INR 1.8 (0.9-1.1) H Current Medications: Meds: Current Medications Medications (Trade) Dose Ordered Sig/Elizabeth Route PRN Reason Start Time Stop Time Status Last Admin Dose Admin Warfarin Sodium (Coumadin) 4 mg 1X WARF ONCE PO 06/20/19 16:00 06/20/19 16:01 DC 06/20/19 16:16 I have reviewed the current psychotropics carefully including drug interactions. Risk benefit ratio favors no change other than as noted in my dictated progress note. Diagnosis: Problems: (1) Impulse disorder, unspecified (2) Anxiety disorder affecting , antepartum (3) Major neurocognitive disorder possibly due to vascular disease, with behavioral disturbance LIZA JAY MD Jun 20, 2019 20:44
[2019-06-21 04:59] VITALS: BP 152/76
[2019-06-21] MEDS: LEVOTHYROXINE 25 MCG TABLET. PO SCH (05:24)
[2019-06-21] MEDS: DIVALPROEX 125 MG CAP.SPRINK PO SCH ×3 (08:21→20:04)
[2019-06-21] MEDS ORDERED: WARFARIN 3 MG TABLET. PO ONE (16:00)
[2019-06-21 16:11] VITALS: BP 153/81
[2019-06-21] MEDS: CHOLECALCIFEROL (VITAMIN D3) 1,000 UNIT TABLET PO SCH (17:04)
[2019-06-21] MEDS: GABAPENTIN 100 MG CAPSULE. PO SCH (17:04)
[2019-06-21 18:41] LABS: BILIRUBIN,URINE NEG (NEG); CLARITY,URINE CLEAR; COLOR,URINE YELLOW; GLUCOSE,URINE NEG (NEG)
[2019-06-21 18:42] LABS: BACTERIA,URINE FEW /HPF (0-FEW); NITRITE,URINE NEG (NEG); SQUAMOUS EPITHELIAL CELL,UR OCC /LPF; UROBILINOGEN,URINE 0.2 mg/dL (0.2 mg/dL)
[2019-06-21] MEDS: OLANZapine 10 MG TABLET PO SCH (20:03)
[2019-06-21] MEDS: SERTRALINE 50 MG TABLET. PO SCH (20:04)
[2019-06-21] MEDS: QUEtiapine 25 MG TABLET. PO SCH (20:04)
--- NOTE | 2019-06-21 21:34 | PDOC ---
Exam Note: Cem Note: Please also refer to the separate dictated note~for this date of service dictated separately.~Patient seen individually. Discussed the patient with Nursing staff reviewed the chart.~Reviewed interim history and current functioning. Reviewed vital signs,~Labs/ Radiology~and current medications noted below. Continue current treatment with the changes noted in the dictated addendum note Assessment: Vital Signs/I&O: Vital Signs Date Time Temp Pulse Resp B/P (MAP) Pulse Ox O2 Delivery O2 Flow Rate FiO2 06/21/19 16:11 98.0 81 18 153/81 (105) 94 Room Air I & O 06/20/19 06/20/19 06/21/19 15:00 23:00 07:00 Intake Total 640 ml 240 ml Balance 640 ml 240 ml Labs: Laboratory Tests Test 06/21/19 06:55 06/21/19 18:20 Prothrombin Time 21.1 SEC (9.4-11.4) H Prothrombin Time INR 2.0 (0.9-1.1) H Urine Collection Type Unknown Urine Color Yellow Urine Clarity Clear Urine pH 6.0 Urine Specific [place] 1.015 Urine Protein Neg (NEG-TRACE) Urine Glucose (UA) Neg mg/dL (NEG) Urine Ketones (Stick) Neg mg/dL (NEG) Urine Blood Small (NEG) Urine Nitrite Neg (NEG) Urine Bilirubin Neg (NEG) Urine Urobilinogen Dipstick 0.2 mg/dL (0.2 mg/dL) Urine Leukocyte Esterase Trace (NEG) Urine RBC 3-5 /HPF (0-2) Urine WBC 1-4 /HPF (0-4) Urine Squamous Epithelial Cells Occ /LPF Urine Transitional Epithelial Cells Mod /LPF Urine Bacteria Few /HPF (0-FEW) Current Medications: Meds: Current Medications Medications (Trade) Dose Ordered Sig/Elizabeth Route PRN Reason Start Time Stop Time Status Last Admin Dose Admin Quetiapine Fumarate (SEROquel) 12.5 mg QHS PO 06/21/19 21:00 06/21/19 20:04 Warfarin Sodium (Coumadin) 3 mg 1X WARF ONCE PO 06/21/19 16:00 06/21/19 16:02 DC 06/21/19 17:04 I have reviewed the current psychotropics carefully including drug interactions. Risk benefit ratio favors no change other than as noted in my dictated progress note. Diagnosis: Problems: (1) Impulse disorder, unspecified (2) Anxiety disorder affecting , antepartum (3) Major neurocognitive disorder possibly due to vascular disease, with behavioral disturbance LIZA JAY MD Jun 21, 2019 21:34
--- NOTE | 2019-06-21 22:55 | PN ---
DATE: 06/20/2019 PSYCHIATRIC PROGRESS NOTE This late entry, 06/20/2019, covers elements not covered in my initial note. SUBJECTIVE: I met with the patient in the evening of 06/20/2019. The patient slept 6-3/4 hours previous night. She remains somewhat confused, anxious. REVIEW OF SYSTEMS: No CV, , pulmonary, eye system symptoms on review. Reliability poor. MENTAL STATUS EXAM: Oriented to herself. Insight, judgment, recent and remote memory, attention, concentration, fund of knowledge poor, consistent with her diagnosis mentioned in my initial note. PLAN: No change from initial note. MAN Demetria JAY MD DR: JAZMIN/luana JOB#: [id number] / [id number]
--- NOTE | 2019-06-21 22:57 | PN ---
DATE: 06/19/2019 This late entry 06/19/2019 covers elements not covered in my initial note. SUBJECTIVE: I met with the patient evening of 06/19/2019. Per Rubio RN, the patient slept 7 hours previous night. 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 REVIEW OF SYSTEMS: No CV, , pulmonary, eye, ENT system symptoms on review. Reliability poor. MENTAL STATUS EXAM: Oriented to herself. Insight, judgment, recent and remote memory, attention, concentration. Fund of knowledge poor, consistent with her diagnosis mentioned in my initial note. PLAN: No change from initial note. LIZA JAY MD DR: JAZMIN/luana JOB#: [id number] / [id number]
[2019-06-22] MEDS: LEVOTHYROXINE 25 MCG TABLET. PO SCH (04:23)
[2019-06-22 04:55] VITALS: BP 173/67
[2019-06-22 08:06] LABS: BASO # 0.1 x10^3/uL (0.0-0.2); BASO % 1 % (0-3); EOS # 0.6 x10^3/uL (0.0-0.7); EOS % 8 % (0-3); HEMATOCRIT 38.3 % (36.0-47.0); HEMOGLOBIN 12.5 g/dL (12.0-15.5); LYMPH # 2.2 x10^3/uL (1.0-4.8); LYMPH % 31 % (24-48); MEAN CORPUSCULAR HEMOGLOBIN 28 pg (25-35); MEAN CORPUSCULAR HGB CONC 33 g/dL (31-37); MEAN CORPUSCULAR VOLUME 87 fL (79-100); MONO # 0.7 x10^3/uL (0.0-1.1); MONO % 9 % (0-9); NEUT # 3.7 x10^3uL (1.8-7.7); NEUT % 51 % (31-73); PLATELET COUNT 206 x10^3/uL (140-400); RED BLOOD COUNT 4.41 x10^6/uL (3.50-5.40); RED CELL DISTRIBUTION WIDTH 14.2 % (11.5-14.5); WHITE BLOOD COUNT 7.2 x10^3/uL (4.0-11.0)
[2019-06-22 08:16] LABS: ALBUMIN/GLOBULIN RATIO 0.8 (1.0-1.7); CALCIUM 8.6 mg/dL (8.5-10.1); CREATININE 1.6 mg/dL (0.6-1.0); GFR 30.3; POTASSIUM 5.6 mmol/L (3.5-5.1); TOTAL BILIRUBIN 0.2 mg/dL (0.2-1.0); TOTAL PROTEIN 6.7 g/dL (6.4-8.2)
[2019-06-22 09:04] VITALS: BP 149/64
[2019-06-22] MEDS: DIVALPROEX 125 MG CAP.SPRINK PO SCH ×3 (09:04→19:46)
[2019-06-22] MEDS ORDERED: SODIUM POLYSTYRENE SULFONATE 15 GM/60 ML ORAL.SUSP. PO ONE (14:30)
[2019-06-22] MEDS: CHOLECALCIFEROL (VITAMIN D3) 50,000 UNIT CAPSULE PO SCH (15:17)
[2019-06-22] MEDS ORDERED: WARFARIN 4 MG TABLET. PO ONE (16:00)
[2019-06-22 16:10] VITALS: BP 168/70
[2019-06-22] MEDS: CHOLECALCIFEROL (VITAMIN D3) 1,000 UNIT TABLET PO SCH (17:11)
[2019-06-22] MEDS: GABAPENTIN 100 MG CAPSULE. PO SCH (17:11)
[2019-06-22] MEDS: OLANZapine 10 MG TABLET PO SCH (19:46)
[2019-06-22] MEDS: SERTRALINE 50 MG TABLET. PO SCH (19:46)
[2019-06-22] MEDS: QUEtiapine 25 MG TABLET. PO SCH (19:47)
--- NOTE | 2019-06-22 21:30 | PDOC ---
Exam Note: Cem Note: Please also refer to the separate dictated note~for this date of service dictated separately.~Patient seen individually. Discussed the patient with Nursing staff reviewed the chart.~Reviewed interim history and current functioning. Reviewed vital signs,~Labs/ Radiology~and current medications noted below. Continue current treatment with the changes noted in the dictated addendum note Assessment: Vital Signs/I&O: Vital Signs Date Time Temp Pulse Resp B/P (MAP) Pulse Ox O2 Delivery O2 Flow Rate FiO2 06/22/19 16:10 97.3 78 16 168/70 (102) 94 06/21/19 16:11 Room Air I & O 06/21/19 06/21/19 06/22/19 15:00 23:00 07:00 Intake Total 820 ml 360 ml 480 ml Balance 820 ml 360 ml 480 ml Labs: Laboratory Tests Test 06/22/19 06:45 White Blood Count 7.2 x10^3/uL (4.0-11.0) Red Blood Count 4.41 x10^6/uL (3.50-5.40) Hemoglobin 12.5 g/dL (12.0-15.5) Hematocrit 38.3 % (36.0-47.0) Mean Corpuscular Volume 87 fL (79-100) Mean Corpuscular Hemoglobin 28 pg (25-35) Mean Corpuscular Hemoglobin Concent 33 g/dL (31-37) Red Cell Distribution Width 14.2 % (11.5-14.5) Platelet Count 206 x10^3/uL (140-400) Neutrophils (%) (Auto) 51 % (31-73) Lymphocytes (%) (Auto) 31 % (24-48) Monocytes (%) (Auto) 9 % (0-9) Eosinophils (%) (Auto) 8 % (0-3) H Basophils (%) (Auto) 1 % (0-3) Neutrophils # (Auto) 3.7 x10^3uL (1.8-7.7) Lymphocytes # (Auto) 2.2 x10^3/uL (1.0-4.8) Monocytes # (Auto) 0.7 x10^3/uL (0.0-1.1) Eosinophils # (Auto) 0.6 x10^3/uL (0.0-0.7) Basophils # (Auto) 0.1 x10^3/uL (0.0-0.2) Prothrombin Time 19.1 SEC (9.4-11.4) H Prothrombin Time INR 1.8 (0.9-1.1) H Sodium Level 142 mmol/L (136-145) Potassium Level 5.6 mmol/L (3.5-5.1) H Chloride Level 109 mmol/L (98-107) H Carbon Dioxide Level 25 mmol/L (21-32) Anion Gap 8 (6-14) Blood Urea Nitrogen 43 mg/dL (7-20) H Creatinine 1.6 mg/dL (0.6-1.0) H Estimated GFR (Cockcroft-Gault) 30.3 BUN/Creatinine Ratio 27 (6-20) H Glucose Level 81 mg/dL (70-99) Calcium Level 8.6 mg/dL (8.5-10.1) Total Bilirubin 0.2 mg/dL (0.2-1.0) Aspartate Amino Transferase (AST) 29 U/L (15-37) Alanine Aminotransferase (ALT) 24 U/L (14-59) Alkaline Phosphatase 64 U/L (46-116) Total Protein 6.7 g/dL (6.4-8.2) Albumin 3.0 g/dL (3.4-5.0) L Albumin/Globulin Ratio 0.8 (1.0-1.7) L Current Medications: Meds: Current Medications Medications (Trade) Dose Ordered Sig/Elizabeth Route PRN Reason Start Time Stop Time Status Last Admin Dose Admin Warfarin Sodium (Coumadin) 4 mg 1X WARF ONCE PO 06/22/19 16:00 06/22/19 16:01 DC 06/22/19 15:18 Vitamin D (Vitamin D3) 50,000 unit WEEKLY PO 06/22/19 14:00 06/22/19 15:17 Sodium Polystyrene Sulfonate (Sps 15 Gm/60 ml Suspension) 30 gm 1X ONCE PO 06/22/19 14:30 06/22/19 14:31 DC 06/22/19 15:18 I have reviewed the current psychotropics carefully including drug interactions. Risk benefit ratio favors no change other than as noted in my dictated progress note. Diagnosis: Problems: (1) Impulse disorder, unspecified (2) Anxiety disorder affecting , antepartum (3) Major neurocognitive disorder possibly due to vascular disease, with behavioral disturbance LIZA JAY MD Jun 22, 2019 21:30
[2019-06-23] MEDS: LEVOTHYROXINE 25 MCG TABLET. PO SCH (05:01)
[2019-06-23 05:35] VITALS: BP 156/82
[2019-06-23 07:10] LABS: CALCIUM 8.9 mg/dL (8.5-10.1); CREATININE 1.7 mg/dL (0.6-1.0); GFR 28.3; POTASSIUM 5.1 mmol/L (3.5-5.1)
[2019-06-23] MEDS: DIVALPROEX 125 MG CAP.SPRINK PO SCH ×3 (08:11→21:09)
[2019-06-23 15:36] VITALS: BP 168/73
[2019-06-23] MEDS ORDERED: WARFARIN 4 MG TABLET. PO ONE (16:00)
[2019-06-23] MEDS: GABAPENTIN 100 MG CAPSULE. PO SCH (17:09)
[2019-06-23] MEDS: CHOLECALCIFEROL (VITAMIN D3) 1,000 UNIT TABLET PO SCH (17:09)
--- NOTE | 2019-06-23 21:06 | PDOC ---
Exam Note: Cem Note: Please also refer to the separate dictated note~for this date of service dictated separately.~Patient seen individually. Discussed the patient with Nursing staff reviewed the chart.~Reviewed interim history and current functioning. Reviewed vital signs,~Labs/ Radiology~and current medications noted below. Continue current treatment with the changes noted in the dictated addendum note Assessment: Vital Signs/I&O: Vital Signs Date Time Temp Pulse Resp B/P (MAP) Pulse Ox O2 Delivery O2 Flow Rate FiO2 06/23/19 15:36 98.5 74 19 168/73 (104) 96 06/21/19 16:11 Room Air I & O 06/22/19 06/22/19 06/23/19 14:59 22:59 06:59 Intake Total 840 ml 240 ml 240 ml Balance 840 ml 240 ml 240 ml Labs: Laboratory Tests Test 06/23/19 06:34 Prothrombin Time 18.3 SEC (9.4-11.4) H Prothrombin Time INR 1.8 (0.9-1.1) H Sodium Level 142 mmol/L (136-145) Potassium Level 5.1 mmol/L (3.5-5.1) Chloride Level 108 mmol/L (98-107) H Carbon Dioxide Level 27 mmol/L (21-32) Anion Gap 7 (6-14) Blood Urea Nitrogen 46 mg/dL (7-20) H Creatinine 1.7 mg/dL (0.6-1.0) H Estimated GFR (Cockcroft-Gault) 28.3 Glucose Level 81 mg/dL (70-99) Calcium Level 8.9 mg/dL (8.5-10.1) Current Medications: Meds: Current Medications Medications (Trade) Dose Ordered Sig/Elizabeth Route PRN Reason Start Time Stop Time Status Last Admin Dose Admin Warfarin Sodium (Coumadin) 4 mg 1X WARF ONCE PO 06/23/19 16:00 06/23/19 16:01 DC 06/23/19 17:08 I have reviewed the current psychotropics carefully including drug interactions. Risk benefit ratio favors no change other than as noted in my dictated progress note. Diagnosis: Problems: (1) Impulse disorder, unspecified (2) Anxiety disorder affecting , antepartum (3) Major neurocognitive disorder possibly due to vascular disease, with behavioral disturbance LIZA JAY MD Jun 23, 2019 21:06
[2019-06-23] MEDS: QUEtiapine 25 MG TABLET. PO SCH (21:08)
[2019-06-23] MEDS: SERTRALINE 50 MG TABLET. PO SCH (21:09)
[2019-06-23] MEDS: OLANZapine 10 MG TABLET PO SCH (21:09)
[2019-06-24 05:23] VITALS: BP 134/69
[2019-06-24] MEDS: LEVOTHYROXINE 25 MCG TABLET. PO SCH (05:44)
[2019-06-24] MEDS: DIVALPROEX 125 MG CAP.SPRINK PO SCH ×3 (08:26→20:46)
--- NOTE | 2019-06-24 11:32 | PN ---
DATE: 06/22/2019 PSYCHIATRIC PROGRESS NOTE This late entry 06/22/2019 covers elements not covered in my initial note. SUBJECTIVE: I met with the patient evening of 06/22/2019. The patient slept 7-1/2 hours previous night. She has had some diarrhea. Received Kayexalate. BUN 43. 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 REVIEW OF SYSTEMS: Ambulation impaired. No CV, , pulmonary, eye, ENT system symptoms on review. Reliability poor. MENTAL STATUS EXAM: Oriented to herself. Insight, judgment, recent and remote memory, attention, concentration, fund of knowledge poor, consistent with her diagnosis mentioned in my initial note. PLAN: No change from initial note. She has had 5 episodes of diarrhea. We will defer to Dr. Jiménez. Rest unchanged. MAN Demetria JAY MD DR: JAZMIN/luana JOB#: [id number] / [id number]
--- NOTE | 2019-06-24 11:34 | PN ---
DATE: 06/23/2019 PSYCHIATRIC PROGRESS NOTE This late entry 06/23/2019 covers elements not covered in my initial note. SUBJECTIVE: I met with the patient evening of 06/23/2019. The patient slept 6-1/4 hours previous night. She was seated at the nursing station and she was getting agitated and nursing staff brought her there to write a nursing report and she was busy writing on a piece of paper oblivious of what she was doing, but seemed much calmer as a consequence of this appropriate intervention by the nursing staff. REVIEW OF SYSTEMS: No CV, , pulmonary, eye, ENT system symptoms on review. MENTAL STATUS EXAM: Oriented to herself. Insight, judgment, recent and remote memory, attention, concentration, fund of knowledge poor, consistent with her diagnosis mentioned in my initial note. PLAN: No change from initial note. MAN Demetria JAY MD DR: JAZMIN/luana JOB#: [id number] / [id number]
--- NOTE | 2019-06-24 11:38 | PN ---
DATE: 06/21/2019 PSYCHIATRIC PROGRESS NOTE This late entry June 21 covers elements not covered in my initial note. SUBJECTIVE: I met with the patient evening of June 21 and staffed at a treatment team meeting with the entire team along with the patient's 2 daughters, Rachelle and Earl attending the conference. I had a lengthy discussion about the patient's diagnosis. Earl is a cardiac nurse and has a medical background to understand the patient's diagnosis and medications and Rachelle was very much involved with the patient's care, which is a big positive for the patient. She slept 7 hours previous night. Appetite 75%, has been calmer according to nursing staff. Family shared that she has a history of OCD, prior psychiatric hospitalization in [place] in July of this year. She has a history of TIA, worsening paranoia; history of barricading herself secondary to the psychosis. 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 REVIEW OF SYSTEMS: Ambulation impaired, with walker. No CV, , pulmonary, eye, ENT system symptoms on review. Reliability poor. MENTAL STATUS EXAM: Oriented to herself. Insight, judgment, recent, remote memory, attention, concentration, fund of knowledge poor, consistent with her diagnoses. IMPRESSION: Major neurocognitive disorder, Alzheimer's, vascular with delusion, depression, behavioral disturbance; anxiety disorder, unspecified; impulse control disorder, unspecified. PLAN: We had a lengthy discussion reviewing pros and cons. Given her marked history of paranoia, agitation, barricading herself as yet another reflection of this, we will go ahead and start Seroquel 12.5 mg p.o. at bedtime. Reviewed risk/and benefit ratio. Maintain Zoloft along with Depakote at current dosage. Adjust further as clinically indicated. Valproic acid level subtherapeutic at 30, but adequate for now. MAN Demetria JAY MD DR: JAZMIN/luana JOB#: [id number] / [id number]
[2019-06-24] MEDS ORDERED: SODIUM POLYSTYRENE SULFONATE 15 GM/60 ML ORAL.SUSP. PO ONE (16:00)
[2019-06-24 16:17] VITALS: BP 155/86
[2019-06-24] MEDS: GABAPENTIN 100 MG CAPSULE. PO SCH (17:29)
[2019-06-24] MEDS: WARFARIN 4 MG TABLET. PO SCH (17:29)
[2019-06-24] MEDS: CHOLECALCIFEROL (VITAMIN D3) 1,000 UNIT TABLET PO SCH (17:29)
[2019-06-24] MEDS: OLANZapine 10 MG TABLET PO SCH (20:46)
[2019-06-24] MEDS: QUEtiapine 25 MG TABLET. PO SCH (20:46)
[2019-06-24] MEDS: SERTRALINE 50 MG TABLET. PO SCH (20:46)
--- NOTE | 2019-06-24 21:29 | PDOC ---
Exam Note: Cem Note: Please also refer to the separate dictated note~for this date of service dictated separately.~Patient seen individually. Discussed the patient with Nursing staff reviewed the chart.~Reviewed interim history and current functioning. Reviewed vital signs,~Labs/ Radiology~and current medications noted below. Continue current treatment with the changes noted in the dictated addendum note Assessment: Vital Signs/I&O: Vital Signs Date Time Temp Pulse Resp B/P (MAP) Pulse Ox O2 Delivery O2 Flow Rate FiO2 06/24/19 16:17 97.2 82 18 155/86 (109) 95 06/21/19 16:11 Room Air I & O 06/23/19 06/23/19 06/24/19 15:00 23:00 07:00 Intake Total 960 ml 360 ml Balance 960 ml 360 ml Labs: Laboratory Tests Test 06/24/19 06:55 Prothrombin Time 19.1 SEC (9.4-11.4) H Prothrombin Time INR 1.9 (0.9-1.1) H Current Medications: Meds: Current Medications Medications (Trade) Dose Ordered Sig/Elizabeth Route PRN Reason Start Time Stop Time Status Last Admin Dose Admin Warfarin Sodium (Coumadin) 4 mg DAILY16 PO 06/24/19 16:00 06/24/19 17:29 Sodium Polystyrene Sulfonate (Sps 15 Gm/60 ml Suspension) 30 gm 1X ONCE PO 06/24/19 16:00 06/24/19 16:02 DC 06/24/19 17:29 I have reviewed the current psychotropics carefully including drug interactions. Risk benefit ratio favors no change other than as noted in my dictated progress note. Diagnosis: Problems: (1) Impulse disorder, unspecified (2) Anxiety disorder affecting , antepartum (3) Major neurocognitive disorder possibly due to vascular disease, with behavioral disturbance LIZA JAY MD Jun 24, 2019 21:29
[2019-06-25 05:29] VITALS: BP 102/54
[2019-06-25] MEDS: LEVOTHYROXINE 25 MCG TABLET. PO SCH (05:30)
[2019-06-25 06:29] VITALS: BP 152/80
[2019-06-25] MEDS: DIVALPROEX 125 MG CAP.SPRINK PO SCH ×3 (09:08→20:37)
[2019-06-25 16:10] VITALS: BP 151/70
[2019-06-25] MEDS: WARFARIN 4 MG TABLET. PO SCH (16:42)
[2019-06-25] MEDS: CHOLECALCIFEROL (VITAMIN D3) 1,000 UNIT TABLET PO SCH (17:28)
[2019-06-25] MEDS: GABAPENTIN 100 MG CAPSULE. PO SCH (17:29)
[2019-06-25] MEDS: OLANZapine 10 MG TABLET PO SCH (20:36)
[2019-06-25] MEDS: QUEtiapine 25 MG TABLET. PO SCH (20:36)
[2019-06-25] MEDS: SERTRALINE 50 MG TABLET. PO SCH (20:37)
--- NOTE | 2019-06-25 21:27 | PDOC ---
Exam Note: Cem Note: Please also refer to the separate dictated note~for this date of service dictated separately.~Patient seen individually. Discussed the patient with Nursing staff reviewed the chart.~Reviewed interim history and current functioning. Reviewed vital signs,~Labs/ Radiology~and current medications noted below. Continue current treatment with the changes noted in the dictated addendum note Assessment: Vital Signs/I&O: Vital Signs Date Time Temp Pulse Resp B/P (MAP) Pulse Ox O2 Delivery O2 Flow Rate FiO2 06/25/19 16:10 98.4 96 20 151/70 (97) 93 06/21/19 16:11 Room Air I & O 06/24/19 06/24/19 06/25/19 14:59 22:59 06:59 Intake Total 820 ml 360 ml Balance 820 ml 360 ml Labs: Laboratory Tests Test 06/25/19 06:20 Prothrombin Time 20.9 SEC (9.4-11.4) H Prothrombin Time INR 2.0 (0.9-1.1) H Current Medications: I have reviewed the current psychotropics carefully including drug interactions. Risk benefit ratio favors no change other than as noted in my dictated progress note. Diagnosis: Problems: (1) Impulse disorder, unspecified (2) Anxiety disorder affecting , antepartum (3) Major neurocognitive disorder possibly due to vascular disease, with behavioral disturbance LIZA JAY MD Jun 25, 2019 21:27
[2019-06-26] MEDS: LEVOTHYROXINE 25 MCG TABLET. PO SCH (05:41)
[2019-06-26 05:53] VITALS: BP 144/70
[2019-06-26] MEDS: DIVALPROEX 125 MG CAP.SPRINK PO SCH ×3 (08:29→19:43)
[2019-06-26 15:49] VITALS: BP 152/74
[2019-06-26] MEDS: GABAPENTIN 100 MG CAPSULE. PO SCH (17:32)
[2019-06-26] MEDS: WARFARIN 4 MG TABLET. PO SCH (17:32)
[2019-06-26] MEDS: CHOLECALCIFEROL (VITAMIN D3) 1,000 UNIT TABLET PO SCH (17:32)
--- NOTE | 2019-06-26 18:34 | PN ---
DATE: 06/24/2019 PSYCHIATRIC PROGRESS NOTE This late entry 06/24/2019 covers elements not covered in my initial note. SUBJECTIVE: I met with the patient evening of 06/24/2019. Per Jill RN, the patient slept 7-3/4 hours previous night. She received additional Kayexalate per Dr. Jiménez for her diarrhea. Potassium is 5.1, BUN and creatinine are elevated, defer to Dr. Jiménez. REVIEW OF SYSTEMS: No CV, , pulmonary, eye system symptoms on review. Reliability poor. MENTAL STATUS EXAM: Oriented to herself. Insight, judgment, recent and remote memory, attention, concentration, fund of knowledge poor, consistent with her diagnosis mentioned in my initial note. PLAN: No change from initial note. MAN Demetria JAY MD DR: JAZMIN/luana JOB#: [id number] / [id number]
--- NOTE | 2019-06-26 18:35 | PN ---
DATE: 06/25/2019 PSYCHIATRIC PROGRESS NOTE This late entry 06/25/2019 covers elements not covered in my initial note. SUBJECTIVE: I met with the patient in the evening. The patient slept 7-3/4 hours previous night. Overall, she remains confused, but behaviorally doing better. REVIEW OF SYSTEMS: No CV, , pulmonary, eye, ENT system symptoms on review. Reliability poor. MENTAL STATUS EXAM: Oriented to herself. Insight, judgment, recent and remote memory, attention, concentration, fund of knowledge poor, consistent with her diagnosis mentioned in my initial note. PLAN: No change from initial note. MAN Demetria JAY MD DR: JAZMIN/luana JOB#: [id number] / [id number]
[2019-06-26] MEDS: SERTRALINE 50 MG TABLET. PO SCH (19:43)
[2019-06-26] MEDS: OLANZapine 10 MG TABLET PO SCH (19:43)
[2019-06-26] MEDS: QUEtiapine 25 MG TABLET. PO SCH (19:43)
--- NOTE | 2019-06-26 21:48 | PDOC ---
Exam Note: Cem Note: Please also refer to the separate dictated note~for this date of service dictated separately.~Patient seen individually. Discussed the patient with Nursing staff reviewed the chart.~Reviewed interim history and current functioning. Reviewed vital signs,~Labs/ Radiology~and current medications noted below. Continue current treatment with the changes noted in the dictated addendum note Assessment: Vital Signs/I&O: Vital Signs Date Time Temp Pulse Resp B/P (MAP) Pulse Ox O2 Delivery O2 Flow Rate FiO2 06/26/19 15:49 97.6 82 18 152/74 (100) 94 06/26/19 05:53 Room Air I & O 06/25/19 06/25/19 06/26/19 15:00 23:00 07:00 Intake Total 720 ml 720 ml Balance 720 ml 720 ml Labs: Laboratory Tests Test 06/26/19 07:05 Prothrombin Time 19.4 SEC (9.4-11.4) H Prothrombin Time INR 1.9 (0.9-1.1) H Current Medications: I have reviewed the current psychotropics carefully including drug interactions. Risk benefit ratio favors no change other than as noted in my dictated progress note. 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
[2019-06-27 05:19] VITALS: BP 119/57
[2019-06-27] MEDS: LEVOTHYROXINE 25 MCG TABLET. PO SCH (05:32)
[2019-06-27] MEDS: DIVALPROEX 125 MG CAP.SPRINK PO SCH ×3 (07:51→20:09)
[2019-06-27] MEDS: WARFARIN 4 MG TABLET. PO SCH (15:13)
[2019-06-27 15:46] VITALS: BP 124/66
[2019-06-27] MEDS: CHOLECALCIFEROL (VITAMIN D3) 1,000 UNIT TABLET PO SCH (17:07)
[2019-06-27] MEDS: GABAPENTIN 100 MG CAPSULE. PO SCH (17:07)
[2019-06-27] MEDS: QUEtiapine 25 MG TABLET. PO SCH (20:09)
[2019-06-27] MEDS: OLANZapine 10 MG TABLET PO SCH (20:09)
[2019-06-27] MEDS: SERTRALINE 50 MG TABLET. PO SCH (20:09)
--- NOTE | 2019-06-27 21:09 | PDOC ---
Exam Note: Cem Note: Please also refer to the separate dictated note~for this date of service dictated separately.~Patient seen individually. Discussed the patient with Nursing staff reviewed the chart.~Reviewed interim history and current functioning. Reviewed vital signs,~Labs/ Radiology~and current medications noted below. Continue current treatment with the changes noted in the dictated addendum note Assessment: Vital Signs/I&O: Vital Signs Date Time Temp Pulse Resp B/P (MAP) Pulse Ox O2 Delivery O2 Flow Rate FiO2 06/27/19 15:46 98.6 78 18 124/66 (85) 93 06/27/19 05:19 Room Air I & O 06/26/19 06/26/19 06/27/19 15:00 23:00 07:00 Intake Total 600 ml Balance 600 ml Current Medications: I have reviewed the current psychotropics carefully including drug interactions. Risk benefit ratio favors no change other than as noted in my dictated progress note. 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
[2019-06-28 05:13] VITALS: BP 140/66
[2019-06-28] MEDS: LEVOTHYROXINE 25 MCG TABLET. PO SCH (05:21)
[2019-06-28] MEDS: DIVALPROEX 125 MG CAP.SPRINK PO SCH ×3 (09:26→20:23)
--- NOTE | 2019-06-28 12:27 | PN ---
DATE: 06/26/2019 PSYCHIATRIC PROGRESS NOTE This late entry 06/26/2019 covers the elements not covered in my initial note. SUBJECTIVE: I met with the patient in the evening of 06/26/2019. The patient slept 6-3/4 hours previous night. 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 REVIEW OF SYSTEMS: No CV, , pulmonary, eye system symptoms on review. Reliability poor. MENTAL STATUS EXAM: Oriented to herself. Insight, judgment, recent and remote memory, attention, concentration, fund of knowledge poor, consistent with her diagnosis mentioned in my initial note. PLAN: No change from initial note. MAN Demetria JAY MD DR: JAZMIN/luana JOB#: [id number] / [id number]
--- NOTE | 2019-06-28 12:31 | PN ---
DATE: 06/27/2019 PSYCHIATRIC PROGRESS NOTE This late entry 06/27/2019 covers elements not covered in my initial note. SUBJECTIVE: I met with the patient in the evening. The patient slept 7 hours previous night. She remains somewhat drowsy in the afternoon, daughter was concerned about it, but the rest of the day, she has certainly not been drowsy and when I saw her in the evening, she was very alert, awake, certainly confused. She is still receiving Kayexalate per Dr. Jiménez. REVIEW OF SYSTEMS: No CV, , pulmonary, eye, ENT system symptoms on review. Reliability poor. MENTAL STATUS EXAM: Oriented to herself. Insight, judgment, recent and remote memory, attention, concentration, fund of knowledge poor, consistent with her diagnosis mentioned in my initial note. PLAN: No change from initial note. MAN Demetria JAY MD DR: JAZMIN/luana JOB#: [id number] / [id number]
[2019-06-28 15:46] VITALS: BP 136/65
[2019-06-28] MEDS: WARFARIN 4 MG TABLET. PO SCH (16:33)
[2019-06-28] MEDS: GABAPENTIN 100 MG CAPSULE. PO SCH (18:20)
[2019-06-28] MEDS: CHOLECALCIFEROL (VITAMIN D3) 1,000 UNIT TABLET PO SCH (18:20)
[2019-06-28] MEDS: SERTRALINE 50 MG TABLET. PO SCH (20:23)
[2019-06-28] MEDS: OLANZapine 10 MG TABLET PO SCH (20:23)
[2019-06-28] MEDS: QUEtiapine 25 MG TABLET. PO SCH (20:23)
--- NOTE | 2019-06-28 21:33 | PDOC ---
Exam Note: Cem Note: Please also refer to the separate dictated note~for this date of service dictated separately.~Patient seen individually. Discussed the patient with Nursing staff reviewed the chart.~Reviewed interim history and current functioning. Reviewed vital signs,~Labs/ Radiology~and current medications noted below. Continue current treatment with the changes noted in the dictated addendum note Assessment: Vital Signs/I&O: Vital Signs Date Time Temp Pulse Resp B/P (MAP) Pulse Ox O2 Delivery O2 Flow Rate FiO2 06/28/19 15:46 98.9 86 18 136/65 (88) 94 06/28/19 05:13 Room Air I & O 06/27/19 06/27/19 06/28/19 15:00 23:00 07:00 Intake Total 720 ml 120 ml Balance 720 ml 120 ml Labs: Laboratory Tests Test 06/28/19 07:57 Prothrombin Time 19.6 SEC (9.4-11.4) H Prothrombin Time INR 1.9 (0.9-1.1) H Current Medications: I have reviewed the current psychotropics carefully including drug interactions. Risk benefit ratio favors no change other than as noted in my dictated progress note. Diagnosis: Problems: (1) Impulse disorder, unspecified (2) Anxiety disorder affecting , antepartum (3) Major neurocognitive disorder possibly due to vascular disease, with behavioral disturbance LIZA JAY MD Jun 28, 2019 21:33
[2019-06-29 05:39] VITALS: BP 151/72
[2019-06-29] MEDS: LEVOTHYROXINE 25 MCG TABLET. PO SCH (05:42)
[2019-06-29 08:41] LABS: ALBUMIN 2.7 g/dL (3.4-5.0); ALBUMIN/GLOBULIN RATIO 0.6 (1.0-1.7); CALCIUM 9.5 mg/dL (8.5-10.1); CREATININE 1.7 mg/dL (0.6-1.0); GFR 28.3; POTASSIUM 4.9 mmol/L (3.5-5.1); TOTAL BILIRUBIN 0.4 mg/dL (0.2-1.0); TOTAL PROTEIN 7.3 g/dL (6.4-8.2)
[2019-06-29 08:45] LABS: BASO % 0 % (0-3); EOS # 0.9 x10^3/uL (0.0-0.7); EOS % 9 % (0-3); HEMATOCRIT 37.4 % (36.0-47.0); HEMOGLOBIN 12.1 g/dL (12.0-15.5); LYMPH # 1.2 x10^3/uL (1.0-4.8); LYMPH % 12 % (24-48); MEAN CORPUSCULAR HEMOGLOBIN 27 pg (25-35); MEAN CORPUSCULAR HGB CONC 32 g/dL (31-37); MEAN CORPUSCULAR VOLUME 83 fL (79-100); MONO # 1.7 x10^3/uL (0.0-1.1); MONO % 16 % (0-9); NEUT # 6.8 x10^3uL (1.8-7.7); NEUT % 63 % (31-73); PLATELET COUNT 225 x10^3/uL (140-400); RED BLOOD COUNT 4.48 x10^6/uL (3.50-5.40); RED CELL DISTRIBUTION WIDTH 13.9 % (11.5-14.5); WHITE BLOOD COUNT 10.7 x10^3/uL (4.0-11.0)
[2019-06-29] MEDS: CHOLECALCIFEROL (VITAMIN D3) 50,000 UNIT CAPSULE PO SCH (08:53)
[2019-06-29] MEDS: DIVALPROEX 125 MG CAP.SPRINK PO SCH ×3 (08:53→19:46)
[2019-06-29 10:48] LABS: % BANDS 1 % (0-9); % EOS 8 % (0-5); % LYMPHS 17 % (24-48); % MONOS 17 % (0-10); % MYELOS 1 % (0-0); % SEGS 56 % (35-66); PLT ESTIMATE ADEQUATE (ADEQUATE)
--- NOTE | 2019-06-29 13:04 | PN ---
DATE: 06/29/2019 SUBJECTIVE: The patient was seen today, met with the staff, chart reviewed. The patient continues to present with problems mostly confusion, significant cognitive deficits, difficult to redirect. OBSERVATION: VITAL SIGNS: Temperature 97.7, blood pressure 151/72, pulse 81, respirations 18, O2 sat 90%. GENERAL: Slept about 7 hours last night. The patient's appetite improved. CURRENT MEDICATIONS: Include Seroquel 12.5 mg at night, Depakote 125 mg b.i.d. and 250 mg at night, Zoloft 50 mg at night, olanzapine 10 mg at night, gabapentin 200 mg daily. The patient is not having any side effects. The patient has not had any recent falls. LABORATORY DATA: The patient's lab reviewed. The patient's Depakote level was 30. The patient's BUN 41, creatinine 1.7 and also elevated lipids, triglycerides 246, cholesterol 220, LDL 134, HDL 37. ASSESSMENT: 1. 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 2. Generalized anxiety disorder. 3. Impulse control disorder, unspecified. PLAN: Continue with the treatment plan. LENGTH OF STAY: 7-10 days. ARSALAN VALENCIA MD DR: BRADEN/luana JOB#: [id number] / [id number]
[2019-06-29 15:34] VITALS: BP 122/69
[2019-06-29] MEDS: CHOLECALCIFEROL (VITAMIN D3) 1,000 UNIT TABLET PO SCH (17:12)
[2019-06-29] MEDS: GABAPENTIN 100 MG CAPSULE. PO SCH (17:12)
[2019-06-29] MEDS: WARFARIN 4 MG TABLET. PO SCH (17:12)
[2019-06-29] MEDS: OLANZapine 10 MG TABLET PO SCH (19:46)
[2019-06-29] MEDS: SERTRALINE 50 MG TABLET. PO SCH (19:46)
[2019-06-29] MEDS: QUEtiapine 25 MG TABLET. PO SCH (19:46)
[2019-06-30] MEDS: LEVOTHYROXINE 25 MCG TABLET. PO SCH (04:43)
[2019-06-30 05:41] VITALS: BP 114/70
[2019-06-30] MEDS: DIVALPROEX 125 MG CAP.SPRINK PO SCH ×3 (08:15→20:47)
[2019-06-30] MEDS ORDERED: CHOL500021 PO (09:48)
[2019-06-30] MEDS ORDERED: DIVA125C2 PO ×2 (09:49→09:50)
[2019-06-30] MEDS ORDERED: MENT113G6 TP (09:51)
[2019-06-30] MEDS ORDERED: OLAN5TAB9 PO (09:53)
[2019-06-30] MEDS ORDERED: QUET25TA PO (09:55)
[2019-06-30] MEDS ORDERED: WARF4TAB64 PO (09:56)
[2019-06-30] MEDS: WARFARIN 4 MG TABLET. PO SCH (16:00)
[2019-06-30 16:12] VITALS: BP 167/73
[2019-06-30] MEDS ORDERED: traZODone 50 MG TABLET. PO PRN (16:30)
[2019-06-30] MEDS ORDERED: TRAZ-120 PO (16:51)
[2019-06-30] MEDS: GABAPENTIN 100 MG CAPSULE. PO SCH (17:46)
[2019-06-30] MEDS: CHOLECALCIFEROL (VITAMIN D3) 1,000 UNIT TABLET PO SCH (17:46)
[2019-06-30] MEDS: QUEtiapine 25 MG TABLET. PO SCH (20:46)
[2019-06-30] MEDS: SERTRALINE 50 MG TABLET. PO SCH (20:47)
[2019-06-30] MEDS: OLANZapine 10 MG TABLET PO SCH (20:47)
[2019-06-30] MEDS ORDERED: MEGESTROL 40 MG TABLET. PO SCH (21:00)
--- NOTE | 2019-06-30 21:20 | PN ---
DATE: 06/30/2019 SUBJECTIVE: The patient was seen today, met with the staff, chart reviewed. Staff reports increased confusion, having problems with her gait and the patient is also a fall risk. The patient is also withdrawn, feeling tired and gradual decline in her overall functioning. LABORATORY DATA: Reviewed. CURRENT MEDICATIONS: Include Seroquel 12.5 mg at night, Depakote 125 mg b.i.d. and 250 mg at night, Zoloft 50 mg at night, olanzapine 10 mg at night, gabapentin 200 mg daily. The patient denies of any side effects except for some sedation. ASSESSMENT: 1. 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 2. Generalized anxiety disorder. 3. Impulse control disorder, unspecified. PLAN: Continue with the treatment. We will consider decrease of olanzapine if she continues to feel sedated. Plan to continue with the treatment. LENGTH OF STAY: 7 to 10 days. ARSALAN VALENCIA MD DR: BRADEN/luana JOB#: [id number] / [id number]
[2019-07-01] MEDS ORDERED: OLAN10TA9 PO (00:01)
[2019-07-01] MEDS: LEVOTHYROXINE 25 MCG TABLET. PO SCH (05:24)
[2019-07-01 05:53] VITALS: BP 154/71
[2019-07-01] MEDS: DIVALPROEX 125 MG CAP.SPRINK PO SCH (08:30)
--- NOTE | 2019-07-01 21:03 | PDOC ---
Exam Note: Cem Note: Please also refer to the separate dictated note~for this date of service dictated separately.~Patient seen individually. Discussed the patient with Nursing staff reviewed the chart.~Reviewed interim history and current functioning. Reviewed vital signs,~Labs/ Radiology~and current medications noted below. Continue current treatment with the changes noted in the dictated addendum note Assessment: Vital Signs/I&O: Vital Signs Date Time Temp Pulse Resp B/P (MAP) Pulse Ox O2 Delivery O2 Flow Rate FiO2 07/01/19 05:53 98.1 84 14 154/71 (98) 92 06/29/19 05:39 Room Air I & O 06/30/19 06/30/19 07/01/19 15:00 23:00 07:00 Intake Total 600 ml 350 ml Balance 600 ml 350 ml Labs: Laboratory Tests Test 07/01/19 06:54 Prothrombin Time 24.1 SEC (9.4-11.4) H Prothrombin Time INR 2.3 (0.9-1.1) H Current Medications: I have reviewed the current psychotropics carefully including drug interactions. Risk benefit ratio favors no change other than as noted in my dictated progress note. 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
--- NOTE | 2019-07-01 22:32 | PN ---
DATE: 06/28/2019 PSYCHIATRIC PROGRESS NOTE This late entry, 06/28/2019, covers elements not covered in my initial note. SUBJECTIVE: I met with the patient in the evening of 06/28/2019 and staffed at a treatment team meeting with the entire team earlier in the day. The patient's daughter, Rachelle, attended the treatment team meeting. We reviewed the patient's progress, diagnosis, medications. She is sleeping average 7 hours, slept 6-1/4 hours previous night. Appetite 100%, gets a little delusional at times, but Seroquel was added 12.5 mg at bedtime to help with this. She remains on Kayexalate per Dr. Jiménez. REVIEW OF SYSTEMS: No CV, , pulmonary, eye, ENT system symptoms on review. Reliability poor due to memory deficits, very pleasant, verbal, interactive as I sat with her in the evening. MENTAL STATUS EXAM: Oriented to herself. Insight, judgment, recent and remote memory, attention, concentration, fund of knowledge poor, consistent with her diagnosis mentioned in my initial note. PLAN: No change from initial note. MAN Demetria JAY MD DR: JAZMIN/luana JOB#: [id number] / [id number]
--- NOTE | 2019-07-02 04:20 | DS ---
DATE OF DISCHARGE: 07/01/2019 This note covers the elements not covered in my initial note of 07/01/2019. REASON FOR ADMISSION: Please refer to the admission history for details. Briefly, the patient is an 89-year-old female referred to us from [facility] by her primary care physician on account of severe paranoia. She was seeking elope from the facility twice. The staff had to stay with her. She was chasing staff with broken glass shards from picture frames. She fell recently on 06/06/2019 and bumped her forehead and received a small abrasion. The patient's behaviors were deemed unmanageable, dangerous at the facility and she had failed outpatient psychiatric interventions resulting in this referral. SIGNIFICANT FINDINGS AND CLINICAL COURSE: Following admission, the patient was seen daily individually by myself from a psychiatric standpoint, medical followup with Dr. Jiménez. She was quite anxious, paranoid, suspicious, and irritable with significant short-term memory deficits. 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 Adjustments were made in her psychotropic. She seemed to respond to a combination of Zoloft 50 mg at bedtime, Zyprexa p.r.n., Depakote Sprinkles 125 mg 09:00 a.m. and 02:00 p.m. and 250 mg at bedtime. Valproic acid level was subtherapeutic at 30, but clinically adequate. She was also started on Seroquel 12.5 mg at bedtime. REVIEW OF SYSTEMS: Prior to discharge on 07/01/2019, no CV, , pulmonary, eye, or ENT system symptoms on review. Reliability is poor. MENTAL STATUS EXAM: Oriented to herself. Insight, judgment, recent and remote memory, attention, concentration, and fund of knowledge are poor, consistent with her diagnosis. FINAL DIAGNOSES: Major neurocognitive disorder, probably vascular with delusion, depression, behavioral disturbance; anxiety disorder, unspecified; impulse control disorder, unspecified. Rest unchanged from the admission. DISCHARGE MEDICATIONS: Please refer to the [facility]AD. DISCHARGE INSTRUCTIONS: Outpatient psychiatric and medical followup at the residential. Time for discharge day management greater than 30 minutes. MAN Demetria JAY MD DR: Paola JOB#: [id number] / [id number]
== END 2019-07-01 09:50 | DRG 886 ==
LOC: ER 16:05 → GEROPSY 18:20
PROVIDERS: ADMIT Psychiatry & Neurology Psychiatry; ATTEND Psychiatry & Neurology Psychiatry
DX: F63.9 Impulse disorder, unspecified (principal); F01.51 Vascular dementia, unspecified severity, with behavioral disturbance; F02.81 Dementia in other diseases classified elsewhere, unspecified severity, with behavioral disturbance; D68.51 Activated protein C resistance; F41.1 Generalized anxiety disorder; M19.90 Unspecified osteoarthritis, unspecified site; E03.9 Hypothyroidism, unspecified; I12.9 Hypertensive chronic kidney disease with stage 1 through stage 4 chronic kidney disease, or unspecified chronic kidney disease; N18.9 Chronic kidney disease, unspecified; M54.32 Sciatica, left side; E55.9 Vitamin D deficiency, unspecified; F32.9 Major depressive disorder, single episode, unspecified; F42.9 Obsessive-compulsive disorder, unspecified; G30.9 Alzheimer's disease, unspecified; G93.89 Other specified disorders of brain; J32.2 Chronic ethmoidal sinusitis; M48.00 Spinal stenosis, site unspecified; S00.83XA Contusion of other part of head, initial encounter; Y93.89 Activity, other specified; Y92.89 Other specified places as the place of occurrence of the external cause; Y99.8 Other external cause status; Z79.899 Other long term (current) drug therapy; Z79.01 Long term (current) use of anticoagulants; Z88.0 Allergy status to penicillin; Z88.8 Allergy status to other drugs, medicaments and biological substances; Z86.73 Personal history of transient ischemic attack (TIA), and cerebral infarction without residual deficits; Z82.5 Family history of asthma and other chronic lower respiratory diseases; Z82.49 Family history of ischemic heart disease and other diseases of the circulatory system
CPT/HCPCS: 36415; 70450; 80048; 80053; 80061; 80164; 81001; 82306; 82607; 83036; 83540; 83550; 83735; 84436; 84443; 84480; 85007; 85025; 85610; 86592; 87086; 93005; 97110; 97116; 97530; 99285-25